=== PATIENT | female | born 1945 | race Two or more races ===

== ENCOUNTER 2020-06-16 09:41 | Emergency (ER) | payer MEDICARE, OTHER ==
[~2020-06-16] VITALS: Ht 162.6 cm; Wt 68.0 kg
--- NOTE | 2020-06-16 10:04 | NUR ---
Patient came in to the er c/o lower back pain x 5 days 10/10 pain scale. On room air, breathing evenly and unlabored. Kept comfortable, will continue to monitor accordingly.
[2020-06-16 10:31] LABS: BILIRUBIN,URINE Negative (NEGATIVE); COLOR,URINE YELLOW (YELLOW); LEUKOCYTE ESTERASE ,URINE Trace (NEGATIVE); NITRITE, URINE Negative (NEGATIVE); PROTEIN,URINE Negative (NEGATIVE); UGLUCOSE Negative (NEGATIVE); UROBILINOGEN,URINE 0.2 EU/dL (0.2)
[2020-06-16 10:51] LABS: BACTERIA,URINE Rare /HPF (None Seen); RBC,URINE 0-2 /HPF (0-2); SQUAMOUS EPITHELIAL CELL,UR Few /HPF (None Seen); WBC,URINE 0-2 /HPF (0-3)
--- NOTE | 2020-06-16 11:25 | NUR ---
XRAY AT BEDSIDE
[2020-06-16] MEDS ORDERED: METH-649 GT (11:48)
[2020-06-16 12:56] VITALS: BP 128/77
--- NOTE | 2020-06-16 12:56 | NUR ---
Patient discharged to home in stable condition. Written and verbal after care instructions given. Patient verbalizes understanding of instruction.
== END 2020-06-16 12:56 | disposition home or self-care (01) ==
LOC: ER 09:48
DX: M54.5 Low back pain (principal); I10 Essential (primary) hypertension
CPT/HCPCS: 72110-TC; 81001

== ENCOUNTER 2021-05-01 10:56 | Emergency (ER) | payer MEDICARE, OTHER ==
[~2021-05-01] VITALS: Ht 160 cm; Wt 69.4 kg
[~2021-05-01 10:56] MED LIST: METH-649 GT
--- NOTE | 2021-05-01 11:05 | NUR ---
pt ambulatory to er bed 07 c/o epigastric pain w/ nausea and vomiting for the past 12 days, pt states she was seen and prescribed w/ antibiotics and just finished the course yesterday w/ no relief from pain and vomiting. placed on monitor. vss pilot captain. awaiting md cardona.
--- NOTE | 2021-05-01 11:20 | NUR ---
dr colorado at bedside for eval.
[2021-05-01] MEDS ORDERED: ONDANSETRON HCL/PF 4 MG/2 ML VIAL ONE (11:27)
[2021-05-01] MEDS ORDERED: MORPHINE SULFATE INJ 4 MG/ML DISP.SYRIN ONE (11:27)
[2021-05-01] MEDS ORDERED: IV NS 0.9% 1,000 ML BAG IV ONE (11:30)
[2021-05-01] MEDS ORDERED: ONDANSETRON HCL/PF 4 MG/2 ML VIAL IVP ONE (11:30)
[2021-05-01] MEDS ORDERED: MORPHINE SULFATE INJ 2 MG/ML DISP.SYRIN IV ONE (11:30)
--- NOTE | 2021-05-01 11:30 | NUR ---
iv line started blood drawn and sent to lab.
[2021-05-01 11:41] LABS: BILIRUBIN,URINE NEGATIVE (NEGATIVE); COLOR,URINE YELLOW (YELLOW); LEUKOCYTE ESTERASE ,URINE NEGATIVE (NEGATIVE); NITRITE, URINE NEGATIVE (NEGATIVE); PH,URINE 7.5 (5.0-8.0); PROTEIN,URINE NEGATIVE (NEGATIVE); UGLUCOSE NEGATIVE (NEGATIVE)
[2021-05-01 11:43] LABS: BASOPHILS # (AUTO) 0.1 K/uL (0.0-0.2); BASOPHILS % (AUTO) 0.9 % (0.0-2.0); EOSINOPHILS % (AUTO) 0.9 % (0.0-6.0); HEMATOCRIT 39 % (33-45); HEMOGLOBIN 12.7 g/dL (11.5-14.8); LYMPHOCYTES # (AUTO) 1.4 K/uL (0.8-4.8); LYMPHOCYTES % (AUTO) 17.3 % (20.0-44.0); MEAN CORPUSCULAR HGB CONC 33 g/dl (31.0-36.0); MEAN CORPUSCULAR VOLUME 86 fL (82-100); MONOCYTES # (AUTO) 0.5 K/uL (0.1-1.30); MONOCYTES % (AUTO) 5.8 % (2.0-12.0); NEUTROPHILS # (AUTO) 6.3 K/uL (1.8-8.9); NEUTROPHILS % (AUTO) 75.1 % (43.0-81.0); PLATELET COUNT (AUTO) 291 K/uL (150-450); RED BLOOD CELL COUNT(AUTO) 4.51 MIL/uL (4.0-5.2); WHITE BLOOD COUNT (AUTO) 8.3 K/uL (4.3-11.0)
[2021-05-01 11:47] LABS: CALCIUM, SERUM 9.2 mg/dL (8.5-10.1); CREATININE 1.3 mg/dL (0.6-1.3); POTASSIUM 5.3 mmol/L (3.5-5.1)
[2021-05-01 11:53] LABS: ALBUMIN 4.1 g/dL (3.4-5.0); BILIRUBIN,DIRECT 0.1 mg/dL (0.0-0.2); BILIRUBIN,TOTAL 0.4 mg/dL (0.2-1.0); TOTAL PROTEIN, SERUM 7.5 g/dL (6.4-8.2)
[2021-05-01] MEDS ORDERED: IV NS 0.9% 250 ML IV ONE (12:24)
[2021-05-01] MEDS ORDERED: IOHEXOL-300 100 ML VIAL IV ONE (12:24)
[2021-05-01] MEDS ORDERED: MAG HYDROX/AL HYDROX/SIMETH 30 ML UDC ONE (13:18)
[2021-05-01] MEDS ORDERED: LIDOCAINE VISCOUS 2% UD 15 ML UDC ONE (13:18)
[2021-05-01] MEDS ORDERED: MAG HYDROX/AL HYDROX/SIMETH 30 ML UDC PO ONE (13:30)
[2021-05-01] MEDS ORDERED: LIDOCAINE VISCOUS 2% UD 15 ML UDC MM ONE (13:30)
[2021-05-01] MEDS ORDERED: MAG355OR18 PO (13:31)
[2021-05-01] MEDS ORDERED: ONDA4TAB11 PO (13:31)
[2021-05-01] MEDS ORDERED: POLY17PO4 PO (13:31)
[2021-05-01 13:47] VITALS: BP 124/80
--- NOTE | 2021-05-01 13:47 | NUR ---
IV removed. Catheter intact and site benign. Pressure and 4x4 applied to site. No bleeding noted.Patient discharged to home in stable condition. Written and verbal after care instructions given. Patient verbalizes understanding of instruction.
== END 2021-05-01 13:49 | disposition home or self-care (01) ==
LOC: ER 10:56
DX: R10.13 Epigastric pain (principal); K59.00 Constipation, unspecified; R11.2 Nausea with vomiting, unspecified; I10 Essential (primary) hypertension; Z79.899 Other long term (current) drug therapy
CPT/HCPCS: 36415; 74177; 80048; 80076; 81003; 83690; 85025; 96361; 96374; 96375; 99285; J2270; J2405; J7050; Q9967